=== PATIENT | male | born 1960 | race Caucasian/White ===

== ENCOUNTER 2019-03-19 11:02 | Emergency (ER) | payer MEDICAID ==
[~2019-03-19] VITALS: Ht 188 cm; Wt 136.4 kg
[~2019-03-19 11:02] MED LIST: CYCL10TA39 PO; ESCI10TA PO; GABA-534 PO; HYDR4TAB55 PO; METH-603 PO; MUPI22OI30 TP; PANT-47 PO; TEMA15CA5 PO
[2019-03-19 12:41] LABS: BASOPHILS % (AUTO) 0.4 % (0-1); EOSINOPHILS # (AUTO) 0.2 X10'3 (0-0.9); EOSINOPHILS % (AUTO) 2.3 % (0-6); HEMATOCRIT 38.9 % (42.0-52.0); LYMPHOCYTES # (AUTO) 2.2 X10'3 (1.1-4.8); LYMPHOCYTES % (AUTO) 30.6 % (21-51); MEAN CORPUSCULAR HEMOGLOBIN 29.8 PG (27.0-31.0); MEAN CORPUSCULAR HGB CONC 33.5 g/dL (33.0-36.5); MEAN CORPUSCULAR VOLUME 88.9 FL (78-98); MONOCYTES # (AUTO) 0.5 X10'3 (0-0.9); MONOCYTES % (AUTO) 6.8 % (2-12); NEUTROPHILS # (AUTO) 4.4 X10'3 (1.8-7.7); NEUTROPHILS % (AUTO) 59.9 % (42-75); PLATELET COUNT 448 X10'3 (140-440); RED BLOOD COUNT 4.37 X10'6 (4.70-6.10); WHITE BLOOD COUNT 7.3 X10'3 (4.5-11.0)
[2019-03-19 12:56] LABS: ALANINE AMINOTRANSFERASE 59 U/L (12-78); ALBUMIN 2.6 G/DL (3.4-5.0); ALBUMIN/GLOBULIN RATIO 0.6 (1.1-1.5); ALKALINE PHOSPHATASE 92 IU/L (46-116); ANION GAP 9 (8-16); ASPARTATE AMINO TRANSFERASE 43 U/L (10-37); BILIRUBIN,TOTAL 0.3 MG/DL (0.1-1.0); BLOOD UREA NITROGEN 3 MG/DL (7-18); BUN/CREATININE RATIO 3.7 (5.4-32.0); CALCIUM 8.5 MG/DL (8.5-10.1); CHLORIDE 100 MMOL/L (99-107); CREATININE 0.82 MG/DL (0.60-1.10); GLUCOSE 237 MG/DL (70-104); SODIUM 137 MMOL/L (135-145); TOTAL CARBON DIOXIDE 28.4 MMOL/L (24-32); TOTAL PROTEIN 7.1 G/DL (6.4-8.2); eGFR > 90 ML/MIN
[2019-03-19 13:03] LABS: POTASSIUM 2.8 MMOL/L (3.5-5.1)
[2019-03-19] MEDS ORDERED: potassium Cl oral solution 20 MEQ/15 ML PO STA (13:10)
--- NOTE | 2019-03-19 13:19 | NUR ---
CARLOS A FROM [facility] CALLED TO CHECK ON THE PT AND TO SEE WHAT THE PLAN IS. SHE SAID SHE WILL CALL BACK ON FRIDAY TO SEE IF HE IS STILL HERE.
[2019-03-19] MEDS ORDERED: IBUP-1985 PO (13:56)
[2019-03-19] MEDS ORDERED: POTA20TA19 PO (13:56)
[2019-03-19] MEDS ORDERED: DOXY100C43 PO (13:56)
[2019-03-19 14:21] VITALS: BP 139/75
--- NOTE | 2019-03-19 14:42 | NUR ---
ASKED PT ABOUT HIS SITUATION AT HOME AND IF HE FEELS HE IS SAFE AND BEING TAKEN CARE OF WELL. PA WAS IN THE ROOM ASKING QUESTIONS TOO. PT DENIES ANY NEGLECT OR ABUSE. HE STATES "RAFAEL TAKES REALLY GOOD CARE OF ME."
== END 2019-03-19 14:28 | disposition home or self-care (01) ==
LOC: ER 11:03
DX: S31.103A Unspecified open wound of abdominal wall, right lower quadrant without penetration into peritoneal cavity, initial encounter (principal); E87.6 Hypokalemia; E11.9 Type 2 diabetes mellitus without complications; I10 Essential (primary) hypertension; G89.29 Other chronic pain; Z98.890 Other specified postprocedural states; Z56.0 Unemployment, unspecified; Z79.899 Other long term (current) drug therapy; X58.XXXA Exposure to other specified factors, initial encounter; Y93.89 Activity, other specified; Y92.89 Other specified places as the place of occurrence of the external cause; Y99.8 Other external cause status
CPT/HCPCS: 36415; 80053; 85025; 99284

== ENCOUNTER 2019-03-31 10:15 | Day surgery (SDC) | payer MEDICAID ==
[~2019-03-31 10:15] MED LIST changes: +DOXY100C43 PO; +IBUP-1985 PO; +POTA20TA19 PO
[2019-03-31] MEDS ORDERED: ALLO100T15 (11:27)
[2019-03-31] MEDS ORDERED: METF500T PO (11:27)
--- NOTE | 2019-03-31 12:00 | NUR ---
Patient arrived via wheelchair from [facility] and was admitted to outpatient wound care for physician visit with Femi Turcios MD. Dressing removed, wound cleansed. New patient assessment completed with review of patient's medical history and current medication list. 1054 - blood glucose 350. Patient instructed that elevated blood sugars delay healing of the wound and can cause further complications including but not limited to amputation of toes or feet. 1100 - Dr. Turcios at bedside accompanied by RN. Wound assessed, time out performed by MD/RN. Wound debrided as detailed in the physician progress/procedure note. Plan of care discussed with patient. Dressings placed per MD orders. Home health with [facility] is arranged and discussed with patient by RN. Patient instructed on the signs and symptoms of infection and to call the Wound Center if any occur or to go to the ED if we are closed: Increased pain in wound Increase in drainage from the wound Redness in the skin surrounding the wound Bleeding from the wound Temperature of 101 or greater Patient instructed that the weight of their body puts a large amount of pressure on their wounds. This pressure keeps the new tissue from growing and inhibits new blood vessels from forming. Explained that, if they continue to bear weight on a body part that has a wound, the time it takes to heal the wound increases, the wound may get worse or the wound may not heal at all. Patient verbalized understanding of all discharge instructions and plan of care and exited via wheelchair out to [facility] in stable condition with no sign or symptom of distress at time of discharge.
== END 2019-03-31 12:10 | disposition home or self-care (01) ==
LOC: WOUND CARE 10:15
PROVIDERS: ATTEND Surgery
DX: E11.622 Type 2 diabetes mellitus with other skin ulcer (principal); L89.893 Pressure ulcer of other site, stage 3; L97.111 Non-pressure chronic ulcer of right thigh limited to breakdown of skin; L89.892 Pressure ulcer of other site, stage 2; L98.491 Non-pressure chronic ulcer of skin of other sites limited to breakdown of skin; E11.65 Type 2 diabetes mellitus with hyperglycemia; E11.40 Type 2 diabetes mellitus with diabetic neuropathy, unspecified; I10 Essential (primary) hypertension; G89.29 Other chronic pain; Z79.899 Other long term (current) drug therapy; Z98.890 Other specified postprocedural states
CPT/HCPCS: 36416; 82948; 97597; A6266; A6021; A6212; A6213

== ENCOUNTER 2021-07-03 10:52 | Day surgery (SDC) | payer MEDICAID ==
[~2021-07-03] VITALS: Ht 188 cm; Wt 129.6 kg
[~2021-07-03 10:52] MED LIST changes: +ALLO100T15; -DOXY100C43 PO; -ESCI10TA PO; -HYDR4TAB55 PO; +METF500T PO; -METH-603 PO; -MUPI22OI30 TP; -PANT-47 PO; -POTA20TA19 PO; -TEMA15CA5 PO
[2021-07-03 11:00] VITALS: BP 159/80
[2021-07-03] MEDS ORDERED: LIDOcaine Viscous 15ml cup ONE (11:20)
[2021-07-03] MEDS ORDERED: fentaNYL/PF 50MCG/1 ML 2ML syringe ONE (11:20)
[2021-07-03] MEDS ORDERED: MIDAZolam 1 MG/ML 5ML VIAL ONE (11:20)
[2021-07-03 11:38] VITALS: BP 112/87
[2021-07-03 11:48] VITALS: BP 114/71
[2021-07-03 11:58] VITALS: BP 133/68
[2021-07-03 12:08] VITALS: BP 169/77
== END 2021-07-03 12:30 | disposition home or self-care (01) ==
LOC: GI LAB 10:52
PROVIDERS: ATTEND Internal Medicine Gastroenterology
DX: R12 Heartburn (principal); Z01.818 Encounter for other preprocedural examination; K21.00 Gastro-esophageal reflux disease with esophagitis, without bleeding; K29.60 Other gastritis without bleeding; E11.9 Type 2 diabetes mellitus without complications; E66.9 Obesity, unspecified; Z68.36 Body mass index [BMI] 36.0-36.9, adult; Z79.899 Other long term (current) drug therapy; Z79.84 Long term (current) use of oral hypoglycemic drugs
CPT/HCPCS: 43239; 99152; J2250; J3010; J7040; Z7512; A4620

== ENCOUNTER 2021-12-14 07:35 | Inpatient (IN) | payer MEDICAID ==
[2021-12-07 14:45] LABS: ALBUMIN 4.3 G/DL (3.4-5.0); ALBUMIN/GLOBULIN RATIO 1.2 (1.1-1.5); ALKALINE PHOSPHATASE 129 IU/L (46-116); BLOOD UREA NITROGEN 16 MG/DL (7-18); CALCIUM 9.8 MG/DL (8.5-10.1); CHLORIDE 102 MMOL/L (99-107); PRE OP ALT 46 U/L (30-65); PRE OP ANION GAP 11 (8-16); PRE OP AST 26 U/L (10-37); PRE OP BILIRUB, TOTAL 0.4 MG/DL (0.0-1.0); PRE OP GLUCOSE 192 MG/DL (70-104); PRE OP POTASSIUM 4.4 MMOL/L (3.4-5.1); PRE OP SODIUM 137 MMOL/L (135-145); eGFR 76 ML/MIN
[2021-12-07 14:49] LABS: BASOPHILS % (AUTO) 0.2 % (0-1); EOSINOPHILS # (AUTO) 0.1 X10'3 (0-0.9); LYMPHOCYTES # (AUTO) 2.6 X10'3 (1.1-4.8); LYMPHOCYTES % (AUTO) 29.8 % (21-51); MEAN CORPUSCULAR HEMOGLOBIN 30.1 PG (27.0-31.0); MEAN CORPUSCULAR HGB CONC 34.5 g/dL (33.0-36.5); MEAN CORPUSCULAR VOLUME 87.3 FL (78-98); MEAN PLATELET VOLUME 7.8 FL (7.4-10.4); MONOCYTES # (AUTO) 0.5 X10'3 (0-0.9); MONOCYTES % (AUTO) 6.2 % (2-12); NEUTROPHILS # (AUTO) 5.4 X10'3 (1.8-7.7); NEUTROPHILS % (AUTO) 62.8 % (42-75); PRE OP HEMATOCRIT 40.9 % (42.0-52.0); PRE OP HEMOGLOBIN 14.1 g/dL (14.0-17.9); PRE OP PLATELET COUNT 325 X10'3 (140-440); RED BLOOD COUNT 4.68 X10'6 (4.70-6.10); RED CELL DISTRIBUTION WIDTH 14.2 % (11.5-14.5)
[2021-12-14] VITALS (19 sets, daily range): BP systolic 94–153; BP diastolic 50–85
[~2021-12-14] VITALS: Ht 188 cm; Wt 131.8 kg
[~2021-12-14 07:35] MED LIST changes: -ALLO100T15; +ALLO300T8 PO; +ATOR40TA72 PO; +CHOL5000 PO; -CYCL10TA39 PO; +DULA0.75 SQ; +DULO60CA65 PO; +FLO0.4C PO; -GABA-534 PO; +GLIP5TAB13 PO; -IBUP-1985 PO; +METF-1203 PO; -METF500T PO; +OXYC5TAB2 PO; +PANT40TA54 PO; +TRAZ-251 PO; +ceFAZolin inj. 3,000 MG in normal saline 100ml IV soln 100 ML IV ONE; +famotidine 20mg tablet PO ONE; +ringers solution, lacted 1,000 ML IV SCH; +sevoflurane 250ml liquid IH ONE
[2021-12-14] MEDS ORDERED: insulin regular, human 10 units/0.1 ml syringe SQ ONE (09:55)
[2021-12-14] MEDS ORDERED: midazolam 1 mg/ML 2ml injection ONE (12:00)
[2021-12-14] MEDS ORDERED: propofol inj 20 ML IV ONE (12:00)
[2021-12-14] MEDS ORDERED: fentaNYL /PF 50mcg/ml 5ml ampule ONE (12:00)
[2021-12-14] MEDS ORDERED: HYDROmorphone inj. 0.5 MG/0.5 ML DISP.SYRIN IV PRN (12:15)
[2021-12-14] MEDS ORDERED: bisacodyl 10mg suppository rectal RC PRN (12:15)
[2021-12-14] MEDS ORDERED: acetaminophen 325mg tablet PO PRN (12:15)
[2021-12-14] MEDS ORDERED: ondansetron/PF 4mg/2ml inj IV PRN (12:15)
[2021-12-14] MEDS ORDERED: oxyCODONE IR 5mg (immed. release) tablet PO PRN ×2 (12:15)
[2021-12-14] MEDS: potassium cl 20mEq in 1/2 NS 1,000 ML IV SCH ×2 (12:15→20:07)
[2021-12-14] MEDS ORDERED: diphenhydrAMINE 25mg capsule PO PRN ×2 (12:15)
[2021-12-14] MEDS ORDERED: ROPIVAcaine 0.5% (5mg/ml) 30ml vial ONE (15:05)
--- NOTE | 2021-12-14 15:15 | NUR ---
Received from OR via , accompanied by Anesthesiologist DR SHAH and report given by Anesthesiolgist. PT PRESENTS WITH 20G RIGHT HAND, RIGHT LEG DRSSING DRY AND INTACT WITH KNEE BRACE IN PLACE. VSS Addendum: 12/14/21 at 1600 by Prudence Moreno RN, RN Amended: Links added.
--- NOTE | 2021-12-14 16:22 | NUR ---
Called pharmacy for ATGerardo.
--- NOTE | 2021-12-14 16:25 | NUR ---
Report called to receiving nurse J CARLOS LOPEZ. Transferred via HOSPITAL BED WITH Belongings, WHEELCHAIR AND 2 PT BAGS TO ROOM 345A. PT BED IN LOW LOCKED POSITION OF COMFORT WITH TV AND CALL LIGHT IN REACH. Special Issues communicated to receiving nurse. Addendum: 12/14/21 at 1641 by Prudence Moreno RN RN Amended: Links added.
--- NOTE | 2021-12-14 16:39 | NUR ---
Received report from Prudence LOPEZ. Pt. oriented to room, call light within reach. Started post op VS. WNL. on RA. No pain at this time. Ice chips and warm blanket provided.
[2021-12-14] MEDS: ceFAZolin/D5W- 1GM premix 50 ML IV SCH ×2 (17:04→23:37)
[2021-12-14] MEDS: gabapentin 300mg capsule PO SCH ×2 (17:04→20:05)
[2021-12-14] MEDS: acetaminophen 325mg tablet PO SCH ×2 (17:05→20:00)
--- NOTE | 2021-12-14 17:32 | NUR ---
Pt. transferred to wound vac bed. Addendum: 12/14/21 at 1734 by Elise Patino RN Pt. transferred to wound bed
--- NOTE | 2021-12-14 17:35 | NUR ---
Doppler pulse found.
--- NOTE | 2021-12-14 18:15 | NUR ---
Patient in room PER 355. I have received report from JOHN Olivares and had the opportunity to ask questions and assume patient care.
--- NOTE | 2021-12-14 18:18 | NUR ---
Gave report to Gail LOPEZ.
[2021-12-14] MEDS ORDERED: vancomycin/NS 1 GM ADD-VANTAGE 250 ML IV SCH (20:00)
[2021-12-14] MEDS: metFORMIN 500mg tablet PO SCH (20:05)
[2021-12-14] MEDS: sennosides 8.6mg tablet PO SCH (20:05)
[2021-12-14] MEDS: traZODone 50mg tablet PO SCH (20:05)
[2021-12-14] MEDS: oxyCODONE IR 5mg (immed. release) tablet PO PRN (20:21)
--- NOTE | 2021-12-14 21:25 | NUR ---
notified regarding blood glucose. orders received. Addendum: 12/15/21 at 0540 by Gail Rodriguez RN MD ordered accuchecks per protocol. MD also wanted to keep all the oral diabetic medications.
[2021-12-14] MEDS: HYDROmorphone 1 mg/ml syringe IV PRN (23:48)
[2021-12-15] VITALS: BP 114/54
[2021-12-15] MEDS: acetaminophen 325mg tablet PO SCH ×4 (01:41→20:42)
[2021-12-15] MEDS: oxyCODONE IR 5mg (immed. release) tablet PO PRN ×4 (02:42→20:45)
[2021-12-15] MEDS ORDERED: MESSAGE TO PHARMACY PO ONE (05:10)
[2021-12-15] MEDS ORDERED: dextrose ORAL solution 15 GM/59 ML bottle PO PRN ×2 (05:10)
[2021-12-15] MEDS ORDERED: dextrose 50%-water 50ml dispensing syringe IV PRN ×2 (05:10)
[2021-12-15] MEDS ORDERED: glucagon, human recombinant 1mg kit SUBCUT PRN (05:10)
[2021-12-15] MEDS: HYDROmorphone 1 mg/ml syringe IV PRN ×2 (05:48→15:46)
[2021-12-15] MEDS: potassium cl 20mEq in 1/2 NS 1,000 ML IV SCH ×3 (05:53→20:15)
[2021-12-15 06:35] LABS: BASOPHILS % (AUTO) 0.2 % (0-1); EOSINOPHILS # (AUTO) 0.1 X10'3 (0-0.9); EOSINOPHILS % (AUTO) 0.9 % (0-6); HEMATOCRIT 33.5 % (42.0-52.0); HEMOGLOBIN 11.2 g/dl (14.0-17.9); LYMPHOCYTES # (AUTO) 3.2 X10'3 (1.1-4.8); LYMPHOCYTES % (AUTO) 33.2 % (21-51); MEAN CORPUSCULAR HEMOGLOBIN 29.8 PG (27.0-31.0); MEAN CORPUSCULAR HGB CONC 33.5 g/dL (33.0-36.5); MONOCYTES # (AUTO) 0.9 X10'3 (0-0.9); MONOCYTES % (AUTO) 9.5 % (2-12); NEUTROPHILS # (AUTO) 5.4 X10'3 (1.8-7.7); NEUTROPHILS % (AUTO) 56.2 % (42-75); PLATELET COUNT 283 X10'3 (140-440); RED BLOOD COUNT 3.77 X10'6 (4.70-6.10); WHITE BLOOD COUNT 9.6 X10'3 (4.5-11.0)
[2021-12-15 06:40] LABS: ANION GAP 9 (8-16); CHLORIDE 101 MMOL/L (99-107); POTASSIUM 3.7 MMOL/L (3.5-5.1); SODIUM 135 MMOL/L (135-145); TOTAL CARBON DIOXIDE 24.8 MMOL/L (24-32)
--- NOTE | 2021-12-15 07:03 | NUR ---
Patient in room PER 355. I have received report from JOHN Reynolds and had the opportunity to ask questions and assume patient care.
[2021-12-15 08:00] VITALS: BP 147/105
[2021-12-15] MEDS ORDERED: ergocalciferol (vit D2) capsule 50,000 UNITS (1,250mcg) CAPSULE PO SCH (08:00)
[2021-12-15] MEDS ORDERED: glipizide 5mg tablet PO SCH (08:00)
[2021-12-15] MEDS: aspirin 325mg tablet PO SCH (08:04)
[2021-12-15] MEDS: gabapentin 300mg capsule PO SCH ×3 (08:04→20:44)
[2021-12-15] MEDS: tamsulosin 0.4mg capsule PO SCH (08:04)
[2021-12-15] MEDS: allopurinol 300 MG tablet PO SCH (08:05)
[2021-12-15] MEDS: atorvastatin 20mg tablet PO SCH (08:06)
[2021-12-15] MEDS: duloxetine 30mg CAPSULE.DR PO SCH (08:07)
[2021-12-15] MEDS: metFORMIN 500mg tablet PO SCH ×2 (08:07→20:42)
[2021-12-15] MEDS: pantoprazole 40mg Tablet.DR PO SCH (08:08)
[2021-12-15] MEDS: insulin Lispro (HumaLOG) vial - multi-dose SQ SCH (09:23)
--- NOTE | 2021-12-15 10:05 | NUR ---
Report given to JOHN Navas
[2021-12-15 11:00] VITALS: BP 115/73
[2021-12-15] MEDS ORDERED: HYDROmorphone inj. 0.5 MG/0.5 ML DISP.SYRIN IV PRN (15:05)
--- NOTE | 2021-12-15 18:03 | NUR ---
CALLED PHARMACY, REGARDING HIM BEING ON DIABETIC PROTOCOL AND RECEIVING TRULICITY AND METFORMIN. OK TO TAKE INSULIN.
--- NOTE | 2021-12-15 18:15 | NUR ---
Problems reprioritized. Patient report given, questions answered & plan of care reviewed with Alireza LOPEZ.
[2021-12-15 20:00] VITALS: BP 148/79
[2021-12-15] MEDS: celeCOXIB 100mg capsule PO SCH (20:41)
[2021-12-15] MEDS: sennosides 8.6mg tablet PO SCH (20:43)
[2021-12-15] MEDS: traZODone 50mg tablet PO SCH (20:43)
[2021-12-15] MEDS: insulin glargine (Lantus) pen - multi-dose SQ SCH (21:00)
[2021-12-16] VITALS: BP 113/73
[2021-12-16] MEDS: acetaminophen 325mg tablet PO SCH ×2 (02:00→07:50)
--- NOTE | 2021-12-16 03:40 | NUR ---
Patient in room PER 355. I have received report from Eloise LOPEZ and had the opportunity to ask questions and assume patient care.
--- NOTE | 2021-12-16 03:42 | NUR ---
HS blood sugar 251. Per dayshift, patient was restarted on protocol due to confusion regarding Diabetic medications. Patient is on metformin BID, as well as trullicity. Additionally, the insulin protocol was initiated for patient, which was the point of confusion for daysakft RN. When discussing this with the resource nurse, there was some miscommunication and lantus was not administered. Will report this to [facility] and have them initiate insulin in the AM
[2021-12-16] MEDS: potassium cl 20mEq in 1/2 NS 1,000 ML IV SCH (04:15)
[2021-12-16] MEDS: oxyCODONE IR 5mg (immed. release) tablet PO PRN ×4 (05:23→19:04)
--- NOTE | 2021-12-16 06:13 | NUR ---
Problems reprioritized. Patient report given, questions answered & plan of care reviewed with Eloise LOPEZ.
[2021-12-16 06:39] LABS: BASOPHILS % (AUTO) 0.1 % (0-1); EOSINOPHILS # (AUTO) 0.1 X10'3 (0-0.9); EOSINOPHILS % (AUTO) 1.1 % (0-6); HEMATOCRIT 32.5 % (42.0-52.0); HEMOGLOBIN 10.9 g/dl (14.0-17.9); LYMPHOCYTES # (AUTO) 1.4 X10'3 (1.1-4.8); LYMPHOCYTES % (AUTO) 15.9 % (21-51); MEAN CORPUSCULAR HEMOGLOBIN 29.8 PG (27.0-31.0); MEAN CORPUSCULAR HGB CONC 33.4 g/dL (33.0-36.5); MEAN CORPUSCULAR VOLUME 89.2 FL (78-98); MEAN PLATELET VOLUME 7.8 FL (7.4-10.4); MONOCYTES % (AUTO) 10.8 % (2-12); NEUTROPHILS # (AUTO) 6.5 X10'3 (1.8-7.7); NEUTROPHILS % (AUTO) 72.1 % (42-75); PLATELET COUNT 260 X10'3 (140-440); RED BLOOD COUNT 3.65 X10'6 (4.70-6.10)
--- NOTE | 2021-12-16 06:52 | NUR ---
Patient in room PER 355. I have received report from Alireza LOPEZ and had the opportunity to ask questions and assume patient care.
[2021-12-16] MEDS: aspirin 325mg tablet PO SCH (07:50)
[2021-12-16] MEDS: atorvastatin 20mg tablet PO SCH (07:50)
[2021-12-16] MEDS: gabapentin 300mg capsule PO SCH ×3 (07:50→20:14)
[2021-12-16] MEDS: allopurinol 300 MG tablet PO SCH (07:51)
[2021-12-16] MEDS: metFORMIN 500mg tablet PO SCH ×2 (07:51→20:13)
[2021-12-16] MEDS: celeCOXIB 100mg capsule PO SCH ×2 (07:51→20:13)
[2021-12-16] MEDS: duloxetine 30mg CAPSULE.DR PO SCH (07:51)
[2021-12-16] MEDS: pantoprazole 40mg Tablet.DR PO SCH (07:51)
[2021-12-16] MEDS: tamsulosin 0.4mg capsule PO SCH (07:51)
[2021-12-16 08:00] VITALS: BP 132/76
[2021-12-16] MEDS: insulin Lispro (HumaLOG) vial - multi-dose SQ SCH ×3 (10:27→18:42)
[2021-12-16 11:00] VITALS: BP 104/59
[2021-12-16] MEDS ORDERED: acetaminophen 325mg tablet PO PRN (12:15)
--- NOTE | 2021-12-16 13:41 | NUR ---
Diabetes Consult: Noted A1C 9. Pt states he has been diabetic for a while. Also s/p R tibia removal of hardware and ORIF w/ fibula osteotomy this admit per EMR. Provided pt w/ written and verbal DM and high protein diet education w/ RD contact info. Addendum: 12/16/21 at [address] Amended: Links added.
--- NOTE | 2021-12-16 18:31 | NUR ---
Problems reprioritized. Patient report given, questions answered & plan of care reviewed with Scott LOPEZ.
[2021-12-16 19:00] VITALS: BP 134/70
[2021-12-16 20:00] VITALS: BP 134/70
[2021-12-16] MEDS: HYDROmorphone 1 mg/ml syringe IV PRN (20:14)
[2021-12-16] MEDS: traZODone 50mg tablet PO SCH (20:14)
[2021-12-16] MEDS: sennosides 8.6mg tablet PO SCH (20:14)
[2021-12-16] MEDS: insulin glargine (Lantus) pen - multi-dose SQ SCH (21:27)
[2021-12-17] VITALS: BP 112/73
[2021-12-17] MEDS: oxyCODONE IR 5mg (immed. release) tablet PO PRN ×4 (00:58→21:59)
[2021-12-17 06:02] LABS: BASOPHILS % (AUTO) 0.1 % (0-1); EOSINOPHILS # (AUTO) 0.2 X10'3 (0-0.9); EOSINOPHILS % (AUTO) 2.3 % (0-6); HEMATOCRIT 28.9 % (42.0-52.0); HEMOGLOBIN 9.9 g/dl (14.0-17.9); LYMPHOCYTES # (AUTO) 2.2 X10'3 (1.1-4.8); LYMPHOCYTES % (AUTO) 29.3 % (21-51); MEAN CORPUSCULAR HEMOGLOBIN 30.2 PG (27.0-31.0); MEAN CORPUSCULAR HGB CONC 34.2 g/dL (33.0-36.5); MEAN CORPUSCULAR VOLUME 88.3 FL (78-98); MEAN PLATELET VOLUME 7.6 FL (7.4-10.4); MONOCYTES # (AUTO) 0.6 X10'3 (0-0.9); NEUTROPHILS # (AUTO) 4.5 X10'3 (1.8-7.7); NEUTROPHILS % (AUTO) 60.3 % (42-75); PLATELET COUNT 244 X10'3 (140-440); RED BLOOD COUNT 3.28 X10'6 (4.70-6.10); WHITE BLOOD COUNT 7.5 X10'3 (4.5-11.0)
--- NOTE | 2021-12-17 06:31 | NUR ---
Patient in room PER 355. I have received report from JOHN Chavez and had the opportunity to ask questions and assume patient care.
--- NOTE | 2021-12-17 06:37 | NUR ---
Problems reprioritized. Patient report given, questions answered & plan of care reviewed with SONYA. Addendum: 12/17/21 at 0637 by Pino Gillespie RN Amended: Links added.
[2021-12-17] MEDS: duloxetine 30mg CAPSULE.DR PO SCH (07:00)
[2021-12-17] MEDS: pantoprazole 40mg Tablet.DR PO SCH (07:00)
[2021-12-17] MEDS: metFORMIN 500mg tablet PO SCH ×2 (07:00→20:56)
[2021-12-17] MEDS: allopurinol 300 MG tablet PO SCH (07:00)
[2021-12-17] MEDS: gabapentin 300mg capsule PO SCH ×3 (07:01→20:56)
[2021-12-17] MEDS: atorvastatin 20mg tablet PO SCH (07:01)
[2021-12-17] MEDS: celeCOXIB 100mg capsule PO SCH ×2 (07:01→20:56)
[2021-12-17] MEDS: aspirin 325mg tablet PO SCH (07:01)
[2021-12-17] MEDS: tamsulosin 0.4mg capsule PO SCH (07:01)
[2021-12-17 07:39] VITALS: BP 121/69
[2021-12-17] MEDS ORDERED: DULAGLUTIDE 0.75 MG SQ SCH (08:00)
[2021-12-17] MEDS: insulin Lispro (HumaLOG) vial - multi-dose SQ SCH ×3 (09:12→19:01)
--- NOTE | 2021-12-17 11:35 | NUR ---
Dr. Arcos called, patient can discharge home if PT clears patient. If patient isn't by PT patient will stay or rehab placement.
[2021-12-17] MEDS: HYDROmorphone 1 mg/ml syringe IV PRN ×2 (11:55→23:18)
[2021-12-17 12:37] VITALS: BP 124/61
--- NOTE | 2021-12-17 18:36 | NUR ---
Problems reprioritized. Patient report given, questions answered & plan of care reviewed with JOHN Campos.
--- NOTE | 2021-12-17 18:40 | NUR ---
Patient in room PER 355. I have received report from SONYA LOPEZ and had the opportunity to ask questions and assume patient care.
[2021-12-17 19:00] VITALS: BP 126/57
[2021-12-17] MEDS: traZODone 50mg tablet PO SCH (20:56)
[2021-12-17] MEDS: sennosides 8.6mg tablet PO SCH (20:58)
[2021-12-17] MEDS: insulin glargine (Lantus) pen - multi-dose SQ SCH (21:23)
[2021-12-18] VITALS: BP 110/62
[2021-12-18] MEDS: oxyCODONE IR 5mg (immed. release) tablet PO PRN ×3 (04:47→19:50)
--- NOTE | 2021-12-18 06:03 | NUR ---
Problems reprioritized. Patient report given, questions answered & plan of care reviewed with SONYA LOPEZ.
--- NOTE | 2021-12-18 06:04 | NUR ---
Patient in room PER 355. I have received report from JOHN Campos and had the opportunity to ask questions and assume patient care.
[2021-12-18] MEDS: gabapentin 300mg capsule PO SCH ×3 (07:06→21:06)
[2021-12-18] MEDS: celeCOXIB 100mg capsule PO SCH ×2 (07:06→19:46)
[2021-12-18] MEDS: allopurinol 300 MG tablet PO SCH (07:06)
[2021-12-18] MEDS: HYDROmorphone 1 mg/ml syringe IV PRN ×3 (07:06→21:47)
[2021-12-18] MEDS: tamsulosin 0.4mg capsule PO SCH (07:06)
[2021-12-18] MEDS: metFORMIN 500mg tablet PO SCH ×2 (07:06→19:46)
[2021-12-18] MEDS: pantoprazole 40mg Tablet.DR PO SCH (07:06)
[2021-12-18] MEDS: atorvastatin 20mg tablet PO SCH (07:06)
[2021-12-18] MEDS: duloxetine 30mg CAPSULE.DR PO SCH (07:06)
--- NOTE | 2021-12-18 07:09 | NUR ---
Diabetes consult: Addressed in previous RD assessment. Addendum: 12/18/21 at [address] Amended: Links added.
[2021-12-18] MEDS: magnesium hydroxide 30ml (MOM) UD suspension PO PRN (07:13)
[2021-12-18 07:18] VITALS: BP 113/58
[2021-12-18] MEDS: aspirin 325mg tablet PO SCH (08:56)
[2021-12-18] MEDS: insulin Lispro (HumaLOG) vial - multi-dose SQ SCH ×3 (09:00→19:44)
[2021-12-18 12:00] VITALS: BP 127/76
[2021-12-18] MEDS ORDERED: DULAGLUTIDE 0.75 MG SQ ONE (12:52)
--- NOTE | 2021-12-18 18:12 | NUR ---
Problems reprioritized. Patient report given, questions answered & plan of care reviewed with JOHN Campos.
--- NOTE | 2021-12-18 18:30 | NUR ---
Patient in room PER 355. I have received report from SONYA LOPEZ and had the opportunity to ask questions and assume patient care.
[2021-12-18 20:00] VITALS: BP 123/59
[2021-12-18] MEDS: sennosides 8.6mg tablet PO SCH (21:06)
[2021-12-18] MEDS: traZODone 50mg tablet PO SCH (21:07)
[2021-12-18] MEDS: insulin glargine (Lantus) pen - multi-dose SQ SCH (21:45)
--- NOTE | 2021-12-18 23:16 | NUR ---
Student Medication Administration: For this medication-pass time frame, all medication were reviewed, dispensed, administered and documented per hospital policy by Adrián MCCONNELL [facility].
--- NOTE | 2021-12-18 23:30 | NUR ---
Student documentation: I have reviewed and agree with all interventions, assessments performed and documented by ANIL HOLLINGSWORTH.
[2021-12-19] VITALS: BP 133/61
[2021-12-19] MEDS: oxyCODONE IR 5mg (immed. release) tablet PO PRN ×2 (06:01→16:22)
--- NOTE | 2021-12-19 06:15 | NUR ---
Problems reprioritized. Patient report given, questions answered & plan of care reviewed with SONYA LOPEZ.
--- NOTE | 2021-12-19 06:18 | NUR ---
Patient in room PER 355. I have received report from JOHN Campos and had the opportunity to ask questions and assume patient care.
[2021-12-19 06:46] VITALS: BP 122/84
[2021-12-19] MEDS: celeCOXIB 100mg capsule PO SCH ×2 (08:14→20:24)
[2021-12-19] MEDS: duloxetine 30mg CAPSULE.DR PO SCH (08:15)
[2021-12-19] MEDS: tamsulosin 0.4mg capsule PO SCH (08:16)
[2021-12-19] MEDS: metFORMIN 500mg tablet PO SCH ×2 (08:17→20:25)
[2021-12-19] MEDS: gabapentin 300mg capsule PO SCH ×3 (08:18→20:24)
[2021-12-19] MEDS: atorvastatin 20mg tablet PO SCH (08:18)
[2021-12-19] MEDS: pantoprazole 40mg Tablet.DR PO SCH (08:19)
[2021-12-19] MEDS: aspirin 325mg tablet PO SCH (08:20)
[2021-12-19] MEDS: allopurinol 300 MG tablet PO SCH (08:20)
[2021-12-19] MEDS: magnesium hydroxide 30ml (MOM) UD suspension PO PRN (08:24)
[2021-12-19] MEDS: insulin Lispro (HumaLOG) vial - multi-dose SQ SCH ×2 (09:10→14:03)
--- NOTE | 2021-12-19 09:28 | NUR ---
Initial: Pt s/p R tibia removal of hardware and ORIF w/ fibula osteotomy this admit per EMR. Pt currently on Carb Controlled diet w/ 100% intake of meals which meets approximately 76% of est energy needs and 94% of est protein needs. Will provide smoothies w/ meals and additional protein w/ breakfast for additional calories/protein. LBM 12/14 receiving routine and PRN bowel care. Will continue to monitor. Recs: 1. Continue Carb controlled diet as tolerated 2. Smoothies BIDLD 3. Double eggs w/ breakfast 4. Bowel care per rx 5. Weekly wts Addendum: 12/19/21 at [address] Amended: Links added.
[2021-12-19] MEDS: HYDROmorphone 1 mg/ml syringe IV PRN ×3 (11:28→23:32)
[2021-12-19 12:00] VITALS: BP 162/76
[2021-12-19 18:00] VITALS: BP 150/57
--- NOTE | 2021-12-19 19:06 | NUR ---
Problems reprioritized. Patient report given, questions answered & plan of care reviewed with JOHN Castillo..
[2021-12-19 19:17] VITALS: BP 134/73
[2021-12-19] MEDS: traZODone 50mg tablet PO SCH (20:13)
[2021-12-19] MEDS: sennosides 8.6mg tablet PO SCH (20:26)
[2021-12-19] MEDS: insulin glargine (Lantus) pen - multi-dose SQ SCH (21:55)
--- NOTE | 2021-12-19 23:32 | NUR ---
Student Medication Administration: For this medication-pass time frame, all medication were reviewed, dispensed, administered and documented per hospital policy by Adrián MCCONNELL [facility].
--- NOTE | 2021-12-19 23:33 | NUR ---
Student documentation: I have reviewed interventions, assessments performed and documented by Adrián MCCONNELL [facility].
[2021-12-20] VITALS: BP 150/57
[2021-12-20 07:00] VITALS: BP 124/60
[2021-12-20] MEDS: pantoprazole 40mg Tablet.DR PO SCH (08:44)
[2021-12-20] MEDS: aspirin 325mg tablet PO SCH (08:44)
[2021-12-20] MEDS: atorvastatin 20mg tablet PO SCH (08:44)
[2021-12-20] MEDS: gabapentin 300mg capsule PO SCH ×3 (08:45→20:57)
[2021-12-20] MEDS: duloxetine 30mg CAPSULE.DR PO SCH (08:45)
[2021-12-20] MEDS: metFORMIN 500mg tablet PO SCH ×2 (08:45→20:56)
[2021-12-20] MEDS: tamsulosin 0.4mg capsule PO SCH (08:45)
[2021-12-20] MEDS: oxyCODONE IR 5mg (immed. release) tablet PO PRN ×3 (08:45→20:58)
[2021-12-20] MEDS: celeCOXIB 100mg capsule PO SCH ×2 (08:45→20:57)
[2021-12-20] MEDS: allopurinol 300 MG tablet PO SCH (08:45)
[2021-12-20] MEDS: insulin Lispro (HumaLOG) vial - multi-dose SQ SCH ×3 (08:53→19:35)
[2021-12-20 11:00] VITALS: BP 124/76
[2021-12-20] MEDS: HYDROmorphone 1 mg/ml syringe IV PRN (12:02)
[2021-12-20 12:21] VITALS: BP 142/82
--- NOTE | 2021-12-20 13:30 | NUR ---
Received TC from RN regarding the amount of carbs on patient's tray. Per RN pt requiring high BG coverage and consuming snacks between meals. Noted pt documented to be consuming mostly 100% PO intake of meals. D/w dietary to discontinue smoothies and send double protein TID for satiety. Will continue to follow. Recommendations: 1. Continue carb controlled diet 2. Double eggs WB, double meat BIDLD 3. Bowel care per rx 4. Weekly scaled wts Addendum: 12/20/21 at [address] Amended: Links added.
--- NOTE | 2021-12-20 15:42 | NUR ---
patient complaining of hypoglycemia, checked PT BG, was 81. PT pale, dizzy, sweaty, weakness, with vision changes. no unilateral deficits. consulted with primary RN about rechecking BG, primary RN denied second BG request. Continued to monitor PT.
--- NOTE | 2021-12-20 16:12 | NUR ---
charting by Vivi MCCONNELL reviewed by Dakota Lara RN
--- NOTE | 2021-12-20 17:14 | NUR ---
BG 56 by student, retaken 79, retaken 69. Pt. has no sx of hypoglycemia. Given glucose shot per order and yogurt w/cheese stick. Dropped pt. down 2 levels- he is now level 4. Student rechecking BG - 88 at this time. Will cont. to monitor on my shift.
[2021-12-20 18:00] VITALS: BP 138/71
--- NOTE | 2021-12-20 18:30 | NUR ---
gAVE REPORT TO JERILYN JEAN-BAPTISTE RN
--- NOTE | 2021-12-20 18:40 | NUR ---
Patient in room PER 355. I have received report from MIKE LOPEZ and had the opportunity to ask questions and assume patient care.
[2021-12-20] MEDS: sennosides 8.6mg tablet PO SCH (20:56)
[2021-12-20] MEDS: traZODone 50mg tablet PO SCH (20:57)
[2021-12-20] MEDS: insulin glargine (Lantus) pen - multi-dose SQ SCH (21:30)
[2021-12-21] VITALS: BP 150/82
--- NOTE | 2021-12-21 06:24 | NUR ---
Problems reprioritized. Patient report given, questions answered & plan of care reviewed with MIKE LOPEZ.
[2021-12-21] MEDS: metFORMIN 500mg tablet PO SCH (07:55)
[2021-12-21] MEDS: aspirin 325mg tablet PO SCH (07:56)
[2021-12-21] MEDS: pantoprazole 40mg Tablet.DR PO SCH (07:56)
[2021-12-21] MEDS: duloxetine 30mg CAPSULE.DR PO SCH (07:56)
[2021-12-21] MEDS: celeCOXIB 100mg capsule PO SCH (07:56)
[2021-12-21] MEDS: atorvastatin 20mg tablet PO SCH (07:56)
[2021-12-21] MEDS: tamsulosin 0.4mg capsule PO SCH (07:56)
[2021-12-21] MEDS: gabapentin 300mg capsule PO SCH ×2 (07:56→13:15)
[2021-12-21] MEDS: allopurinol 300 MG tablet PO SCH (07:56)
[2021-12-21] MEDS: oxyCODONE IR 5mg (immed. release) tablet PO PRN ×2 (07:57→13:15)
[2021-12-21 08:00] VITALS: BP 129/74
[2021-12-21] MEDS: insulin Lispro (HumaLOG) vial - multi-dose SQ SCH (09:31)
[2021-12-21 11:00] VITALS: BP 115/71
--- NOTE | 2021-12-21 13:41 | NUR ---
Called Anuja [phone] the pt's [facility] worker. She states she will "be home all day" to accept the pt. arriving home. Discharge pending ride arrangement for electric w/c.
--- NOTE | 2021-12-21 14:44 | NUR ---
DISCHARGE NOTE: Reviewed discharge paperwork with pt. IV DC'd, pressure bandage applied, cannula intact, no s/sx bleeding noted. Pt. given instructions on incision care, s/sx infection, DM management, New medications and possible ASE, f/u care with PCP and [facility]. Contact information for CM given and [facility] office. Pt. already has yuli. with PCP on 12/27 at 1:45 and is aware. Pt. belongings all gathered up and pt. in w/c. Home nursing and PT ordered by JESSY. Verified pain medications ordered by [facility]. Pt. aware no DM covered given r/t not able to assess after discharge. Pt. gives good verbal feedback on f/u care and has no questions. Pt. aware overlay for his bed is to be delivered to his home. Currently sitting in his electric w/c waiting on ride which has been arranged by cable puller.
== END 2021-12-21 15:05 | disposition home health service (06) | DRG 313 ==
LOC: PAS 07:35 → SUR 3N 12:15
PROVIDERS: ADMIT Orthopaedic Surgery; ATTEND Orthopaedic Surgery
PROC: 0QRH0KZ Replacement of Left Tibia with Nonautologous Tissue Substitute, Open Approach (ICD-10-PCS; 2021-12-14)
PROC: 0QSG04Z Reposition Right Tibia with Internal Fixation Device, Open Approach (ICD-10-PCS; 2021-12-14)
PROC: 0QPG04Z Removal of Internal Fixation Device from Right Tibia, Open Approach (ICD-10-PCS; 2021-12-14)
PROC: 0QBJ0ZZ Excision of Right Fibula, Open Approach (ICD-10-PCS; principal; 2021-12-14 11:59)
DX: S82.201K Unspecified fracture of shaft of right tibia, subsequent encounter for closed fracture with nonunion (principal); E11.9 Type 2 diabetes mellitus without complications; S82.401K Unspecified fracture of shaft of right fibula, subsequent encounter for closed fracture with nonunion
CPT/HCPCS: 36415; 73600; 76000; 80051; 80053; 82948; 83036; 85025; 87070; 87075; 87081; 87176; 97110; 97161; 97530; A4618; A6449; A7000; C1713; G0378; J0690; J1170; J1815; J2250; J2704; J2795; J3010; J3370; J3480; J3490; J7120; L1832; Q0163; U0003; U0005

== ENCOUNTER 2024-08-20 11:51 | Emergency (ER) | payer MEDICAID ==
[~2024-08-20 11:51] MED LIST changes: -GLIP5TAB13 PO; +GLIP5TAB23 PO; -ceFAZolin inj. 3,000 MG in normal saline 100ml IV soln 100 ML IV ONE; -famotidine 20mg tablet PO ONE; -ringers solution, lacted 1,000 ML IV SCH; -sevoflurane 250ml liquid IH ONE
[2024-08-20 11:58] VITALS: BP 157/90; PULSE 85; TEMP 97.8; O2SAT 94
[2024-08-20] MEDS ORDERED: TRAM50TA2 PO (13:12)
[2024-08-20 13:33] VITALS: RESP 18
== END 2024-08-20 13:34 | disposition home or self-care (01) ==
LOC: ER 11:51
DX: S92.414A Nondisplaced fracture of proximal phalanx of right great toe, initial encounter for closed fracture (principal); I10 Essential (primary) hypertension; E11.40 Type 2 diabetes mellitus with diabetic neuropathy, unspecified; G89.29 Other chronic pain; M54.9 Dorsalgia, unspecified; Z56.0 Unemployment, unspecified; Z98.890 Other specified postprocedural states; Z91.040 Latex allergy status; Z79.899 Other long term (current) drug therapy; Z79.84 Long term (current) use of oral hypoglycemic drugs; X58.XXXA Exposure to other specified factors, initial encounter; Y93.89 Activity, other specified; Y92.89 Other specified places as the place of occurrence of the external cause; Y99.8 Other external cause status
CPT/HCPCS: 73660; 99284; L3260